=== PATIENT | female | born 1980 | race Caucasian/White ===

== ENCOUNTER → 2023-05-21 | Outpatient (CLI) | payer OTHER ==
[~2023-05-21] MED LIST: NASONEX0.05 MG/AC NS; NKHM; PREDNICOT20 MG PO; PROTONIX40 MG PO; XANAX0.25 MG PO; ZITHROMAX250 MG PO
== END | disposition home or self-care (01) ==
LOC: MAMMO 15:21
PROVIDERS: ATTEND Nurse Practitioner Family
DX: Z12.31 Encounter for screening mammogram for malignant neoplasm of breast (principal); Z12.2 Encounter for screening for malignant neoplasm of respiratory organs

== ENCOUNTER 2023-07-11 11:11 | Emergency (ER) | payer SELFPAY ==
[~2023-07-11] VITALS: Ht 165.1 cm; Wt 95.3 kg
[2023-07-11] MEDS ORDERED: AVPAK AZITHROM250 MG PO (11:54)
[2023-07-11] MEDS ORDERED: BENZONATATE100 M1 PO (11:54)
== END 2023-07-11 12:13 | disposition home or self-care (01) ==
LOC: ED 11:11
DX: J32.9 Chronic sinusitis, unspecified (principal); Z79.899 Other long term (current) drug therapy; Z90.49 Acquired absence of other specified parts of digestive tract

== ENCOUNTER 2023-08-01 21:22 | Emergency (ER) | payer SELFPAY ==
[~2023-08-01] VITALS: Ht 165.1 cm; Wt 95.3 kg
[~2023-08-01 21:22] MED LIST changes: +AVPAK AZITHROM250 MG PO; +BENZONATATE100 M1 PO
[2023-08-01] MEDS ORDERED: AMLODIPINE BES2.5 MG PO (21:33)
[2023-08-01] MEDS ORDERED: CYMBALTA30 MG PO (21:33)
[2023-08-01] MEDS ORDERED: ZESTRIL40 MG PO (21:33)
[2023-08-01] MEDS ORDERED: HYDR25T PO (21:33)
[2023-08-01] MEDS ORDERED: Ketorolac Tromethamine 60 MG/2 ML VIAL IM ONE (22:20)
[2023-08-01] MEDS ORDERED: NAPROXEN250 MG PO (22:21)
== END 2023-08-01 22:44 | disposition home or self-care (01) ==
LOC: ED 21:22
DX: S93.402A Sprain of unspecified ligament of left ankle, initial encounter (principal); S80.01XA Contusion of right knee, initial encounter; Z79.899 Other long term (current) drug therapy; Z90.49 Acquired absence of other specified parts of digestive tract; W18.39XA Other fall on same level, initial encounter; Y93.89 Activity, other specified; Y92.89 Other specified places as the place of occurrence of the external cause; Y99.8 Other external cause status

== ENCOUNTER → 2024-05-27 | Outpatient (CLI) | payer BC ==
[~2024-05-27] MED LIST changes: +AMLODIPINE BES2.5 MG PO; +CYMBALTA30 MG PO; +HYDR25T PO; +NAPROXEN250 MG PO; +ZESTRIL40 MG PO
== END | disposition home or self-care (01) ==
LOC: MAMMO 09:03
PROVIDERS: ATTEND Nurse Practitioner
DX: Z12.31 Encounter for screening mammogram for malignant neoplasm of breast (principal); R92.323 Mammographic fibroglandular density, bilateral breasts